=== PATIENT | female | born 1945 | race African-American/Black ===

== ENCOUNTER 2016-09-26 14:45 | Inpatient (IN) | payer OTHER ==
[~2016-09-26] VITALS: Ht 157.5 cm; Wt 86.9 kg
--- NOTE | ~2016-09-26 | H ---
[facility] [place] [address] HISTORY AND PHYSICAL Name: VALERIA LARIOS Room #: 443-P [facility] IN .R.#: [id number] Admission: 09/26/16 Attend Phys: Ugo King MD Discharge: 09/30/16 Date of : 43 Report #: [id number] THIS REPORT FOR: //name// CC: Ugo King DATE OF SERVICE: 09/26/2016 DATE OF ADMISSION: 09/26/2016. CHIEF COMPLAINT: Cough, weakness and fever. HISTORY OF PRESENT ILLNESS: The patient is a 71-year-old -[place] female who resides at [facility]. She had developed cold symptoms with nonproductive cough, fever and fatigue over the past 24 hours due to generalized weakness. She was brought to [facility] Emergency Room for evaluation. In the Emergency Department, chest x-ray was unremarkable; however, she was found to be hypoxic and requiring oxygen at 2 liters per minute via nasal cannula. She was also found to have elevated BUN and creatinine as well as lactic acidosis. She was admitted with working diagnosis of volume depletion with lactic acidosis due to volume depletion. PAST MEDICAL HISTORY: Diabetes mellitus type 2, hyperlipidemia, hypertension, dependent edema, osteoporosis, constipation, depression, lupus erythematosus. History of bulging disk, spinal stenosis and lumbar radiculopathy. ALLERGIES: No known drug allergies. MEDICATIONS: MiraLax 17 grams in 8 ounce water daily, potassium chloride 10 mEq daily, pravastatin 40 mg daily, prednisone 5 mg daily, venlafaxine 75 mg b.i.d., tramadol 50 mg q. 6 hours p.r.n., milk of magnesia 5 mL daily as needed, Lantus 30 units subQ at bedtime, NovoLog 6 units subq 3 times a day before meals, Fosamax 70 grams every Friday, calcium and vitamin D 600/40 one tablet daily, Colace 100 mg 2 capsules twice daily, ferrous sulfate 325 mg twice daily, Lasix 40 mg daily, gabapentin 300 mg twice daily, losartan 100 mg daily, Toprol-XL 25 mg daily. FAMILY HISTORY: Noncontributory. SOCIAL HISTORY: She is single, lives in a [facility] facility, does not use tobacco or alcohol. REVIEW OF SYSTEMS: As per history of present illness. She is able to feed herself, but needs assistance to transfer from bed to chair. She gets about the facility in a wheelchair. She needs assistance with dressing and personal hygiene. [facility] [address] [place] [address] HISTORY AND PHYSICAL Name: HARRIETVALERIA Room #: [facility]#: [id number] Admission: 09/26/16 Attend Phys: Ugo King MD Discharge: 09/30/16 Date of : 43 Report #: [id number] PHYSICAL EXAMINATION: GENERAL: The patient is a pleasant -Austrian female lying in bed, asleep, but arousable in no apparent distress. RECENT VITAL SIGNS: Reveal temperature of 100.7, pulse of 90, respiratory rate 20, blood pressure 140/66. HEENT: Head is normocephalic, atraumatic. Pupils are reactive. Extraocular muscles are intact. Oropharynx is moist. NECK: Supple. Trachea midline. LUNGS: Clear. CARDIOVASCULAR: Regular rate and rhythm. ABDOMEN: Soft, nontender, nondistended. Normoactive bowel sounds. SKIN: Warm and dry. Turgor adequate. LYMPHATICS: No cervical or axillary lymphadenopathy. NEUROLOGIC: She is awake, alert. She is asleep but easily arousable, oriented x 3 without focal neurologic deficit or lateralizing signs. LABORATORY DATA: BUN 26, creatinine 1.5, glucose 211. AST is 57, ALT is 72. Albumin is 3.2. Lactic acid is 2.2. Troponin is unremarkable. WBC is 9.9, hemoglobin is 11.8, hematocrit is 36.3. Urinalysis shows protein trace, blood trace. Arterial blood gas reveals pH of 7.42, pCO2 of 40, pO2 of 58.5 on room air with oxygen saturation of 90%. RADIOGRAPHIC STUDIES: Include chest x-ray, which shows cardiomegaly and mild pulmonary edema and large hiatal hernia. ASSESSMENT: 1. Volume depletion. 2. Hypoxemia, although possibility of a pneumonia given interstitial markings and low grade fever, which suggests possible pneumonia, though she does not have leukocytosis. 3. Lactic acidosis. 4. Diabetes mellitus type 2 with neuropathy. 5. Hypertension, benign. 6. Vitamin D deficiency. 7. Systemic lupus erythematosus. 8. Hyperlipidemia. 9. Osteoporosis. 10. Constipation. PLAN: Admission, continue IV fluids. We will repeat her chest x-ray and CBC in the morning. Monitor for recurrent fever. We will swab for influenza titers, [address] [address] HISTORY AND PHYSICAL Name: VALERIA LARIOS Room #: 443-P [facility] IN M.R.#: [id number] Admission: 09/26/16 Attend Phys: Ugo King MD Discharge: 09/30/16 Date of : 43 Report #: [id number] will continue home medications and need to repeat her arterial blood gas in the morning. Otherwise, continue home medications except for Lasix and potassium. <ELECTRONICALLY SIGNED> By: Ugo King MD 10/26/16 1931 203 0001 Ugo King MD /nt
--- NOTE | ~2016-09-26 | EKG ---
[address] [address] ELECTROCARDIOGRAM REPORT Name: VALERIA LARIOS Room #: [facility]#: [id number] Admission: 09/26/16 Attend Phys: Discharge: Date of : 43 Report #: [id number] THIS REPORT FOR: //name// [facility] ED Test Date: 2016-09-26 Test Time: 15:09:44 Pat Name: VALERIA LARIOS Department: Room: Gender: F Top Collar Baster: MZOOK : 1945 Requested By: Zane Campa Order Number: [id number] MD: Nicanor Ospina Measurements Intervals [place] Rate: 94 P: 27 TX: 159 QRS: -8 QRSD: 82 T: 44 QT: 328 QTc: 411 Interpretive Statements Sinus rhythm No previous ECG available for comparison Electronically Signed On 09-26-2016 15:52:23 QUALITY MANAGEMENT NURSE by Nicanor Ospina [email or web address] <ELECTRONICALLY SIGNED> By: Nicanor Ospina MD 09/26/16 1552 1509 1509 Nicanor Ospina MD /LAURA
[~2016-09-26 14:45] MED LIST: ACETAMINOPHEN-1 EAC1 PO; CALICUM 500+D1 EACH PO; COZAAR 50 MG TA50 M2 PO; DOCUSIL100 MG PO; DUONEB 2.5-0.5 M3 ML INH; FOSAMAX 70 MG T70 MG PO; LANTUS SOL100 UNIT/1 SQ; LASIX 40 MG TAB40 M2 PO; MILK OF MA2400 MG/10 PO; MIRALAX255 GM PO; NEURONTIN 300300 M1 PO; NOVOLOG FL100 UNIT/M SC; PRAVACHOL40 MG PO; PREDNISONE 5 MG5 M1 PO; TRAMADOL 50 MG50 MG PO; VENLAFAXIN75 MG/1 T2 PO
[2016-09-26 14:46] VITALS: BP 108/52
[2016-09-26] MEDS ORDERED: LANTUS100 UNIT/M SUBQ (15:01)
[2016-09-26] MEDS ORDERED: NOVOLOG FL100 UNIT/M SC (15:11)
[2016-09-26] MEDS ORDERED: IRON325 PO (15:13)
[2016-09-26] MEDS ORDERED: TOPROL XL25 MG PO (15:14)
[2016-09-26] MEDS ORDERED: KLOR-CON 1010 MEQ PO (15:15)
[2016-09-26] MEDS ORDERED: MILK OF MA2400 MG/10 PO (15:16)
[2016-09-26] MEDS ORDERED: PREDNISONE 5 MG5 M1 PO (15:16)
[2016-09-26 15:56] LABS: HEMATOCRIT 36.3 % (37.0-47.0); HEMOGLOBIN 11.8 gm/dL (12.0-15.0); MCHC 32.6 % (28.0-37.0); MCV 82.8 fL (80.0-100.0); PLATELET COUNT 218 thou/uL (150-400); RBC 4.38 mil/uL (4.20-5.00); RDW 13.8 % (10.5-14.5); WBC 9.9 thou/uL (4.0-11.0)
[2016-09-26 16:00] LABS: MANUAL DIFF YES
[2016-09-26 16:05] LABS: ANION GAP 7 mmol/L (7-16); BUN 26 mg/dL (7-18); CALCIUM 9.1 mg/dL (8.5-10.1); CHLORIDE 102 mmol/L (98-107); CO2 31 mmol/L (21-32); CREATININE 1.5 mg/dL (0.6-1.3); GLUCOSE 211 mg/dL (70-99); POTASSIUM 4.8 mmol/L (3.5-5.1); SODIUM 140 mmol/L (136-145)
[2016-09-26 16:14] LABS: ALBUMIN 3.2 g/dL (3.4-5.0); ALKALINE PHOSPHATASE 51 U/L (46-116); SGOT 57 U/L (15-37); SGPT 72 U/L (30-65); TOTAL BILIRUBIN 0.2 mg/dL (<0.1-1.0); TOTAL PROTEIN 7.6 g/dL (6.4-8.2); TROPONIN-I < 0.04 ng/mL (<0.04-0.07)
[2016-09-26 16:26] LABS: ABSOLUTE NEUTROPHILS 8.6 thou/uL (1.4-8.2); TOTAL CELL COUNT 100
[2016-09-26 16:27] LABS: ANISOCYTOSIS 1+; POIKILOCYTOSIS SLIGHT; POLYCHROMASIA OCCASIONAL
[2016-09-26 16:38] LABS: URINE BILIRUBIN NEGATIVE (Negative); URINE BLOOD TRACE (Negative); URINE COLOR YELLOW; URINE GLUCOSE-RANDOM* NEGATIVE (Negative); URINE KETONES NEGATIVE (Negative); URINE NITRITE NEGATIVE (Negative); URINE PROTEIN (DIPSTICK) TRACE (Negative); URINE SPECIFIC GRAVITY 1.015 (1.003-1.035); URINE UROBILINOGEN 0.2 E.U./dl (0.2-1.0)
[2016-09-26 17:10] LABS: ABG SAMPLE TYPE ARTERIAL; BE(vivo) 1.2 mmol/L (-2 to +3); HCO3 25.7 mmol/L (22.0-26.0); LACTATE 1.58 mmol/L (0.5-2.0); O2(CT) 15.7 mL/dL (15.0-23.0); O2Hb 90.2 % (92.0-98.0); PCO2 40.1 mmHg (35.0-45.0); PO2 58.5 mmHg (80.0-100.0); STICK SITE L.RADIAL; pH 7.424 (7.360-7.450); tCO2 26.9 mmol/L (24.0-30.0)
[2016-09-26 18:15] VITALS: BP 108/62
[2016-09-26 18:37] VITALS: BP 140/66
[2016-09-26 20:16] VITALS: BP 139/72
[2016-09-26 21:54] LABS: HEMATOCRIT 38.6 % (37.0-47.0); HEMOGLOBIN 12.5 gm/dL (12.0-15.0); MCHC 32.3 % (28.0-37.0); MCV 83.4 fL (80.0-100.0); RBC 4.63 mil/uL (4.20-5.00); RDW 13.7 % (10.5-14.5); WBC 8.7 thou/uL (4.0-11.0)
[2016-09-27 00:38] VITALS: BP 111/52
[2016-09-27 04:01] VITALS: BP 115/61
[2016-09-27 04:39] LABS: HEMATOCRIT 34.5 % (37.0-47.0); MCH 26.8 pg (26.0-34.0); MCHC 31.8 % (28.0-37.0); MCV 84.1 fL (80.0-100.0); RBC 4.1 mil/uL (4.20-5.00); RDW 13.7 % (10.5-14.5); WBC 5.7 thou/uL (4.0-11.0)
[2016-09-27 04:49] LABS: CALCIUM 8.6 mg/dL (8.5-10.1); CREATININE 1.1 mg/dL (0.6-1.3); POTASSIUM 4.1 mmol/L (3.5-5.1)
[2016-09-27 08:32] VITALS: BP 111/55
[2016-09-27 11:56] LABS: ABG SAMPLE TYPE ARTERIAL; BE(vivo) -0.3 mmol/L (-2 to +3); HCO3 24.5 mmol/L (22.0-26.0); LACTATE 0.98 mmol/L (0.5-2.0); O2(CT) 14.2 mL/dL (15.0-23.0); PCO2 40.7 mmHg (35.0-45.0); pH 7.397 (7.360-7.450); sO2 87.8 % (92.0-98.0); tCO2 25.7 mmol/L (24.0-30.0)
[2016-09-27 11:57] LABS: PO2 53.6 mmHg (80.0-100.0)
[2016-09-27 12:32] VITALS: BP 112/58
[2016-09-27 16:55] VITALS: BP 120/65
[2016-09-27 20:32] VITALS: BP 120/58
[2016-09-28 04:46] VITALS: BP 100/49
[2016-09-28 08:00] VITALS: BP 124/61
[2016-09-28 12:00] VITALS: BP 131/78
[2016-09-28 16:00] VITALS: BP 138/62
[2016-09-28 19:46] VITALS: BP 122/49
[2016-09-29 04:12] VITALS: BP 130/70
[2016-09-29 08:00] VITALS: BP 134/61
[2016-09-29 11:42] LABS: HEMATOCRIT 34.3 % (37.0-47.0); MCH 26.9 pg (26.0-34.0); MCHC 32.1 % (28.0-37.0); MCV 83.9 fL (80.0-100.0); RBC 4.08 mil/uL (4.20-5.00); RDW 13.7 % (10.5-14.5); WBC 7.3 thou/uL (4.0-11.0)
[2016-09-29 11:58] LABS: ALBUMIN 2.6 g/dL (3.4-5.0); CALCIUM 8.6 mg/dL (8.5-10.1); POTASSIUM 4.5 mmol/L (3.5-5.1); TOTAL BILIRUBIN 0.3 mg/dL (<0.1-1.0); TOTAL PROTEIN 6.7 g/dL (6.4-8.2)
[2016-09-29 12:00] VITALS: BP 154/72
[2016-09-29 16:00] VITALS: BP 122/60
[2016-09-29 20:30] VITALS: BP 141/55
[2016-09-30 05:00] VITALS: BP 125/53
[2016-09-30 08:54] VITALS: BP 141/71
[2016-09-30] MEDS ORDERED: CEFTRIAXON1 GM/50 ML IVPB (09:57)
[2016-09-30] MEDS ORDERED: TAMIFLU30 MG PO (09:58)
[2016-09-30 12:36] VITALS: BP 131/66
== END 2016-09-30 16:49 | DRG 871 ==
LOC: ER 14:45 → 4S 16:39 → EROBS 16:39 → 4S 18:03
PROVIDERS: Internal Medicine; Physician Assistant
PROC: 05H533Z Insertion of Infusion Device into Right Subclavian Vein, Percutaneous Approach (ICD-10-PCS; principal; 2016-09-30)
PROC: B546ZZA Ultrasonography of Right Subclavian Vein, Guidance (ICD-10-PCS; 2016-09-30)
DX: A41.9 Sepsis, unspecified organism (principal); J18.9 Pneumonia, unspecified organism; N17.9 Acute kidney failure, unspecified; E87.2 Acidosis; M19.90 Unspecified osteoarthritis, unspecified site; F32.9 Major depressive disorder, single episode, unspecified; F41.9 Anxiety disorder, unspecified; R09.02 Hypoxemia; E78.5 Hyperlipidemia, unspecified; K59.00 Constipation, unspecified; E11.40 Type 2 diabetes mellitus with diabetic neuropathy, unspecified; I10 Essential (primary) hypertension; K21.9 Gastro-esophageal reflux disease without esophagitis; E55.9 Vitamin D deficiency, unspecified; E86.9 Volume depletion, unspecified; M81.0 Age-related osteoporosis without current pathological fracture; M48.00 Spinal stenosis, site unspecified; M32.9 Systemic lupus erythematosus, unspecified; M54.16 Radiculopathy, lumbar region; Z90.710 Acquired absence of both cervix and uterus; Z90.49 Acquired absence of other specified parts of digestive tract; Z98.49 Cataract extraction status, unspecified eye; Z98.890 Other specified postprocedural states; Z79.899 Other long term (current) drug therapy; Z79.2 Long term (current) use of antibiotics; Z79.52 Long term (current) use of systemic steroids; J09.X2 Influenza due to identified novel influenza A virus with other respiratory manifestations
CPT/HCPCS: 10100; 27001

== ENCOUNTER → 2017-01-21 | Outpatient (CLI) | payer OTHER ==
[~2017-01-21] MED LIST changes: +CEFTRIAXON1 GM/50 ML IVPB; +IRON325 PO; +KLOR-CON 1010 MEQ PO; +LANTUS100 UNIT/M SUBQ; +TAMIFLU30 MG PO; +TOPROL XL25 MG PO
== END ==
LOC: HYPER 07:10
DX: E11.621 Type 2 diabetes mellitus with foot ulcer (principal); L89.892 Pressure ulcer of other site, stage 2; E11.40 Type 2 diabetes mellitus with diabetic neuropathy, unspecified; E66.09 Other obesity due to excess calories; E11.42 Type 2 diabetes mellitus with diabetic polyneuropathy; F32.89 Other specified depressive episodes; M51.9 Unspecified thoracic, thoracolumbar and lumbosacral intervertebral disc disorder; H26.8 Other specified cataract; K21.9 Gastro-esophageal reflux disease without esophagitis; M15.0 Primary generalized (osteo)arthritis; F41.1 Generalized anxiety disorder; E78.5 Hyperlipidemia, unspecified; I11.0 Hypertensive heart disease with heart failure; I50.9 Heart failure, unspecified; D50.9 Iron deficiency anemia, unspecified; M48.00 Spinal stenosis, site unspecified; M32.9 Systemic lupus erythematosus, unspecified; Z86.718 Personal history of other venous thrombosis and embolism; M81.0 Age-related osteoporosis without current pathological fracture; Z72.89 Other problems related to lifestyle

== ENCOUNTER → 2017-04-09 | Outpatient (CLI) | payer OTHER | LOC: HYPER 07:09 | DX: L89.892 Pressure ulcer of other site, stage 2 (principal); E11.621 Type 2 diabetes mellitus with foot ulcer; L97.521 Non-pressure chronic ulcer of other part of left foot limited to breakdown of skin; I70.245 Atherosclerosis of native arteries of left leg with ulceration of other part of foot; E66.09 Other obesity due to excess calories; E11.42 Type 2 diabetes mellitus with diabetic polyneuropathy; I11.0 Hypertensive heart disease with heart failure; I50.9 Heart failure, unspecified; E11.36 Type 2 diabetes mellitus with diabetic cataract; K21.9 Gastro-esophageal reflux disease without esophagitis; M15.0 Primary generalized (osteo)arthritis; E78.5 Hyperlipidemia, unspecified; D50.9 Iron deficiency anemia, unspecified; M32.9 Systemic lupus erythematosus, unspecified; M48.00 Spinal stenosis, site unspecified; S90.822A Blister (nonthermal), left foot, initial encounter; E11.39 Type 2 diabetes mellitus with other diabetic ophthalmic complication; H40.9 Unspecified glaucoma; M81.0 Age-related osteoporosis without current pathological fracture; F32.89 Other specified depressive episodes; F41.1 Generalized anxiety disorder; Z79.01 Long term (current) use of anticoagulants; Z72.89 Other problems related to lifestyle; Z79.4 Long term (current) use of insulin; Z68.32 Body mass index [BMI] 32.0-32.9, adult; Z86.718 Personal history of other venous thrombosis and embolism; X58.XXXA Exposure to other specified factors, initial encounter; Y93.89 Activity, other specified; Y92.89 Other specified places as the place of occurrence of the external cause; Y99.8 Other external cause status ==

== ENCOUNTER → 2017-04-16 | Outpatient (CLI) | payer OTHER | LOC: ULTRA 11:25 | DX: E11.621 Type 2 diabetes mellitus with foot ulcer (principal); E11.40 Type 2 diabetes mellitus with diabetic neuropathy, unspecified; L97.529 Non-pressure chronic ulcer of other part of left foot with unspecified severity ==

== ENCOUNTER → 2017-04-30 | Outpatient (CLI) | payer OTHER | LOC: HYPER 07:03 | DX: E11.621 Type 2 diabetes mellitus with foot ulcer (principal); L97.511 Non-pressure chronic ulcer of other part of right foot limited to breakdown of skin; L89.893 Pressure ulcer of other site, stage 3; L97.521 Non-pressure chronic ulcer of other part of left foot limited to breakdown of skin; I70.245 Atherosclerosis of native arteries of left leg with ulceration of other part of foot; L89.892 Pressure ulcer of other site, stage 2; E11.40 Type 2 diabetes mellitus with diabetic neuropathy, unspecified; E66.09 Other obesity due to excess calories; Z68.32 Body mass index [BMI] 32.0-32.9, adult; Z79.4 Long term (current) use of insulin; E11.42 Type 2 diabetes mellitus with diabetic polyneuropathy; I50.9 Heart failure, unspecified; F32.89 Other specified depressive episodes; M51.9 Unspecified thoracic, thoracolumbar and lumbosacral intervertebral disc disorder; E11.36 Type 2 diabetes mellitus with diabetic cataract; K21.9 Gastro-esophageal reflux disease without esophagitis; M15.0 Primary generalized (osteo)arthritis; F41.1 Generalized anxiety disorder; E78.5 Hyperlipidemia, unspecified; I10 Essential (primary) hypertension; D50.9 Iron deficiency anemia, unspecified; M48.00 Spinal stenosis, site unspecified; M32.9 Systemic lupus erythematosus, unspecified; Z86.718 Personal history of other venous thrombosis and embolism; M19.90 Unspecified osteoarthritis, unspecified site; M81.0 Age-related osteoporosis without current pathological fracture; Z72.89 Other problems related to lifestyle ==

== ENCOUNTER → 2017-05-21 | Outpatient (CLI) | payer OTHER | LOC: HYPER 07:02 | DX: L89.892 Pressure ulcer of other site, stage 2 (principal); S90.822D Blister (nonthermal), left foot, subsequent encounter; E66.09 Other obesity due to excess calories; E11.42 Type 2 diabetes mellitus with diabetic polyneuropathy; M15.0 Primary generalized (osteo)arthritis; I10 Essential (primary) hypertension; M32.9 Systemic lupus erythematosus, unspecified; E11.36 Type 2 diabetes mellitus with diabetic cataract; E11.39 Type 2 diabetes mellitus with other diabetic ophthalmic complication; H40.9 Unspecified glaucoma; M81.0 Age-related osteoporosis without current pathological fracture; F32.9 Major depressive disorder, single episode, unspecified; Z79.4 Long term (current) use of insulin; Z86.718 Personal history of other venous thrombosis and embolism; Z79.01 Long term (current) use of anticoagulants; Z72.89 Other problems related to lifestyle; X58.XXXD Exposure to other specified factors, subsequent encounter ==

== ENCOUNTER 2017-06-04 10:51 | Inpatient (IN) | payer OTHER ==
--- NOTE | ~2017-06-04 | HC ---
[facility] [place] [address] [address] CONSULTATION Name: VALERIA LARIOS Room #: 402-P ADM IN .R.#: [id number] Admission: 06/04/17 Attend Phys: Ugo King MD Discharge: Date of : 43 Report #: [id number] THIS REPORT FOR: //name// CC: Ugo King DATE OF SERVICE: 06/05/2017 CHIEF COMPLAINT: Osteomyelitis, left great toe. HISTORY OF PRESENT ILLNESS: This is a 72-year-old female patient who was at a nursing care facility, has been followed by my partner, Dr. Barry. She was found to have osteomyelitis and despite appropriate debridement and antibiotic therapy, has had persistence of the ulceration and the osteomyelitis. She has been admitted for amputation of the toe. PAST MEDICAL HISTORY: Positive for type 2 diabetes mellitus, lupus, chronic dependent edema, DVT, depression, hyperlipidemia, hypertension, constipation. MEDICATIONS: Include DuoNeb, atorvastatin, Colace, Effexor, Lovenox, ferrous sulfate, Lasix, Aldactone, gabapentin, Levemir, Topral XL, losartan, MiraLax, and prednisone. FAMILY HISTORY: Noncontributory. SOCIAL HISTORY: Lives in a nursing care facility. No history of alcohol or tobacco use. REVIEW OF SYSTEMS: CONSTITUTIONAL: No fever, chills, weight loss. NEUROLOGICAL: The patient has focal weakness. ENT: The patient denies earache, nasal drainage, or sore throat. CARDIOVASCULAR: The patient denies chest pain, palpitations, or diaphoresis. PULMONARY: The patient denies cough or shortness of breath. GASTROINTESTINAL: The patient denies nausea, vomiting, or diarrhea. ORTHOPEDIC: The patient does note ulcerations to both big toes. Other systems in a 12-point review of systems are negative. PHYSICAL EXAMINATION: VITAL SIGNS: At this time include pulse 109, respiratory rate 18, blood pressure 112/45, temperature 98.1. GENERAL: This is a chronically ill-appearing female patient, appears to be in no distress. HEENT: Head normocephalic. Nose and throat are clear. LUNGS: Clear. ABDOMEN: Soft. Bowel sounds present. HEART: Regular, without murmur. [facility] [address] [place] [address] CONSULTATION Name: VALERIA LARIOS Room #: 402-P [facility] IN [facility].#: [id number] Admission: 06/04/17 Attend Phys: Ugo King MD Discharge: Date of : 43 Report #: [id number] EXTREMITIES: Lower extremities demonstrate palpable distal pulses. She has ulceration to the dorsal aspect of the right great toe with a mix of granulation and fibrin. There is ulceration to the tip of the left great toe. She has small stage 2 pressure ulceration to her coccyx and a small blister to the left side of her abdominal wall, possibly related to an injection site. CLINICAL IMPRESSION: 1. Ulceration of the left great toe with underlying osteomyelitis. 2. Stage II sacral pressure ulceration. 3. Small blister, left abdominal wall. 4. Ulceration to the right great toe without radiographic evidence of osteomyelitis. RECOMMENDATIONS: The patient will have consultation with Orthopedics for possible amputation of the left great toe. We will use a moisture barrier cream to the sacral region every 2 hour, turning and repositioning, bordered foam to the left abdominal wall blister, and a nonadherent dressing to the right great toe. All questions have been answered. <ELECTRONICALLY SIGNED> By: Bowen Lopez MD 06/06/17 1002 1809 0042 Bowen Lopez MD /nt
--- NOTE | ~2017-06-04 | HC ---
[facility] [place] [address] CONSULTATION Name: VALERIA LARIOS Room #: 402-P ADM IN .R.#: [id number] Admission: 06/04/17 Attend Phys: Ugo King MD Discharge: Date of : 43 Report #: [id number] THIS REPORT FOR: //name// CC: Ugo King DATE OF SERVICE: 06/06/2017 DATE OF SERVICE: 06/06/2017 CHIEF COMPLAINT: Peripheral vascular disease and diabetes with ischemic changes in both feet and soft tissue wounds of both great toes with associated osteomyelitis. HISTORY OF PRESENT ILLNESS: This obese 72-year-old female with multiple medical problems is a resident of an [facility] care facility. She has poorly controlled diabetes, lupus, hypertension and peripheral vascular disease. She also has a history of chronic deep venous thrombosis and chronic peripheral edema as well as hyperlipidemia. She has a moderate foot drop and moderate generalized weakness of both lower extremities and apparently has been nonambulatory for some time. She has developed deformities of both great toes and has mild ischemic changes and open wounds over the dorsal aspect of the IP joint of both toes. I believe she has had antibiotic management for quite some time, but without resolution. She has imaging evidence of osteomyelitis involving the left great toe. At the time of my evaluation, she is accompanied by her family. She seems to understand the situation well. She notes she has moderate discomfort in both feet. She has altered sensation. She has some ability for both dorsiflexion and plantar flexion, but rather significant weakness in both legs. Both feet demonstrate some generalized soft tissue and skin atrophy. There are erosive changes over the dorsal aspect of both the left and right great toe. There is no taylor necrosis, but there is obvious impaired vascular supply and some serous drainage of both toes suggesting ongoing infection. The lesser toes are less severely involved, although the skin quality is poor. Pulses are quite diminished in both feet. I have had a lengthy discussion with the patient and her accompanying family. They seem to understand the situation well and feel that her chronic nonsurgical management has not been effective in controlling the situation. They are concerned with increasing pain and evidence of infection, probably involving osteomyelitis at least on the left side. Therefore, they wish to go ahead with toe amputation, which was the primary purpose of this hospital admission. I have explained that the osteomyelitis findings are primarily on the left side; however, the objective clinical findings are similar on the right. I have explained that this toe may do adequately with continued conservative management, but she feels that the toe wound and appearance have gotten somewhat [address] [address] CONSULTATION Name: HARRIETREJIVALERIA Tiny Room #: 402-P ADM IN M.R.#: [id number] Admission: 06/04/17 Attend Phys: Ugo King MD Discharge: Date of : 43 Report #: [id number] worse with time. Given this, she wants to go ahead with amputation on the right side as well as on the left. I think that is reasonable given her overall clinical picture. We have therefore elected to go ahead with bilateral great toe amputations. Plan to proceed today on 06/06/2017. <ELECTRONICALLY SIGNED> By: Avery Saeed MD 06/06/17 0912 0735 0851 Avery Saeed MD /nt
--- NOTE | ~2017-06-04 | H ---
[facility] [place] [address] HISTORY AND PHYSICAL Name: VALERIA LARIOS Room #: 402-P [facility] IN .R.#: [id number] Admission: 06/04/17 Attend Phys: Ugo King MD Discharge: 06/10/17 Date of : 43 Report #: [id number] THIS REPORT FOR: //name// CC: Ugo King DATE OF SERVICE: 06/04/2017 CHIEF COMPLAINT: Osteomyelitis of left great toe. HISTORY OF PRESENT ILLNESS: The patient is a 72-year-old -[place] female who resides at [facility]. She has a poorly-healing wound on her left great toe that has been ongoing for over a year. She has longstanding diabetes, though recent arterial Doppler does not reveal any evidence of atherosclerotic limiting blood flow. She has been seen in the Wound Clinic by Dr. Neal Barry. She was found to have osteomyelitis of the left great toe roughly 4 months ago. She has received multiple antibiotics including rounds of doxycycline for MRSA as recent as 3 months ago. Recent wound culture grew out Proteus and Enterococcus, both sensitive to penicillin. She was started on Augmentin. She also has known underlying deep vein thrombosis of the left tibial vein and was managed on Xarelto. Xarelto was discontinued as on 05/29/2017 and she has been receiving Lovenox since then. Due to poor healing nature of the left great toe and underlying osteomyelitis, having failed multiple antibiotic therapies, with continued duration, she has been made a direct admit to [facility] for a left great toe amputation as discussed with Dr. Neal Barry. PAST MEDICAL HISTORY: Diabetes mellitus type 2, lupus, chronic dependent edema, deep vein thrombosis of the left posterior tibial vein, depression, hyperlipidemia, hypertension, osteoporosis, and constipation. MEDICATIONS: DuoNeb nebulized treatments q.i.d., atorvastatin 40 mg at bedtime, Colace 200 mg daily, Effexor 75 mg b.i.d., Lovenox 80 mg subcutaneous at bedtime, ferrous sulfate 325 mg b.i.d., Lasix 40 mg daily, Aldactone 25 mg daily, gabapentin 300 mg t.i.d., Levemir 30 units subcutaneous at bedtime, losartan 100 mg daily, Toprol-XL 25 mg daily, oxycodone 5 mg t.i.d., MiraLax 17 grams in 8 ounce water daily, prednisone 5 mg daily, vitamin D3 2000 units daily. FAMILY HISTORY: Noncontributory. SOCIAL HISTORY: The patient resides at [facility]. She does not use tobacco or alcohol. REVIEW OF SYSTEMS: GENERAL: The patient denies any significant pain. HEENT: Negative. [facility] [address] [place] [address] HISTORY AND PHYSICAL Name: VALERIA LARIOS Room #: 402-P [facility] IN M.R.#: [id number] Admission: 06/04/17 Attend Phys: Ugo King MD Discharge: 06/10/17 Date of : 43 Report #: [id number] PULMONARY: No cough or shortness of breath. CARDIOVASCULAR: No chest pains or palpitations with mild chronic edema. GASTROINTESTINAL: No nausea, vomiting, constipation, or diarrhea. MUSCULOSKELETAL: Wheelchair bound and ongoing osteomyelitis of left toe with poor healing in both left and right great toe. MUSCULAR: She is also wheelchair bound. PHYSICAL EXAMINATION: GENERAL: The patient is pleasant and cooperative -[place] female sitting up in hospital bed, in no apparent distress. VITAL SIGNS: Reveal temperature of 36.8, pulse of 92, respiratory rate 18, blood pressure 122/46. HEENT: Head is normocephalic, atraumatic. Pupils are equal and reactive. Extraocular muscles are intact. Oropharynx is moist. NECK: Supple. Trachea midline. LUNGS: Clear to auscultation bilaterally. CARDIOVASCULAR: Regular rate and rhythm. ABDOMEN: Soft, nontender, nondistended with normoactive bowel sounds. SKIN: Warm and dry. Turgor adequate. Dressing over both left and right great toes. LYMPHATICS: No cervical or axillary lymphadenopathy. NEUROLOGIC: She is awake, alert, oriented x 3. Cranial nerves 2-12 within normal limits without focal neurologic deficit or lateralizing signs. LABORATORY DATA: Pertinents in the CBC includes hemoglobin 11.4, hematocrit 36.1. ESR is 101. Pertinents in the BMP include BUN 32, creatinine 1.4, GFR of 45, glucose of 228, calcium 9.9. Wound cultures in the shelter facility performed on 05/27 grew out Proteus mirabilis and Enterococcus faecalis. ASSESSMENT: 1. Chronic osteomyelitis of left great toe with growth of Proteus mirabilis and Enterococcus faecalis. 2. Diabetes mellitus type 2 with neuropathy. 3. Hypertension, benign. 4. Vitamin D deficiency. 5. Systemic lupus erythematosus. 6. Hyperlipidemia. 7. Deep vein thrombosis of left tibial vein. 8. Chronic dependent edema. 9. Bilateral foot drop. 10. Osteoporosis. 11. Constipation. PLAN: Admission. We will start peripheral IV and give IV Zosyn based on most [facility] [place] [place] [address] HISTORY AND PHYSICAL Name: VALERIA LARIOS Room #: 402-P [facility] IN .#: [id number] Admission: 06/04/17 Attend Phys: Ugo King MD Discharge: 06/10/17 Date of : 43 Report #: [id number] recent year wound culture. We will consult Wound Care and orthopedic surgeon. We will continue home medications. We will obtain wound cultures of both left and right great toe. We will also get an x-ray of the left and right great toe. We will forego venous Doppler as this has been done at care home. Hopefully, she will go to surgery within the next 24-48 hours to undergo amputation of left great toe due to chronic underlying osteomyelitis. In addition, we will continue all home medications. <ELECTRONICALLY SIGNED> By: Ugo King MD 06/26/17 1923 [id number] 2255 Ugo King MD /nt
--- NOTE | ~2017-06-04 | S ---
[facility] [place] [address] SURGICAL PATH RPT PROCEDURE Name: VALERIA LARIOS Room #: 402-P ADM IN M.R.#: [id number] Admission: 06/04/17 Date of : 43 Discharge: Report #: [id number] Path Case #: [id number] PATHOLOGY REPORT COLLECTION DATE: 06/06/2017 RECEIVED DATE: 06/06/2017 SUBMITTING PHYS: Dr. Avery Saeed OTHER PHYS: Dr. Ugo King SPECIMEN(S) RECEIVED: A.Right great toe B.Left great toe * * * * * * * * * * * * FINAL DIAGNOSIS: A. Toe, "right great toe," amputation: - Extensive ulceration with gangrenous type necrosis extending deeply into the underlying bone. - The resection margin appears viable. B. Toe, "left great toe," amputation: - Ulceration with gangrenous type necrosis extending deeply into the underlying soft tissue and bone. - The resection margin appears viable. (SHA:mgr; 06/10/2017) PATHOLOGIST: Maverick Conklin M.D. REPORT ELECTRONICALLY SIGNED BY: Maverick Conklin M.D. DATE/TIME: 06/10/2017 14:47 * * * * * * * * * * * * GROSS PATHOLOGY: A. The specimen is received in formalin labeled "Valeria Larios, right great toe". Received is an amputated digit measuring 6.3 x 3.3 x 3.0 cm in greatest mentions. The bone margin is smooth and concave in appearance, consistent with disarticulation. The bone and soft tissue margins are inked black. The nail is present displaying a light fraser and slightly thickened appearance. Proximal to the nail there is a well-circumscribed, irregular in contour, focally ulcerated two necrotic and lipscomb-brown lesion measuring 2.0 x 1.4 cm, which is 0.9 cm from the closest inked margin. The remainder the skin is pale fraser to lipscomb-fraser slightly sloughing in appearance. A full-thickness longitudinal cross-section is submitted in cassettes A1 through A4, from proximal to distal aspects, following decalcification. Also received within the specimen container is an additional segment of bone displaying one blunt margin, consistent with transection, and [address] [address] SURGICAL PATH RPT PROCEDURE Name: VALERIA LARIOS Tiny Room #: 402-P ADM IN .R.#: [id number] Admission: 06/04/17 Date of : 43 Discharge: Report #: [id number] Path Case #: [id number] one convex cartilaginous covered margin, consistent with disarticulation, measuring 2.3 x 1.7 x 1.5 cm in greatest dimensions. The transected margin is inked black. A full-thickness cross-section is submitted in cassette A5, following decalcification. B. The specimen is received in formalin labeled "Valeria Larios, left great toe". Received is an amputated digit measuring 6.4 x 3.1 x 3.0 cm in greatest dimensions. The bone margin is smooth and concave in appearance, consistent with disarticulation. The bone and soft tissue margins are inked black. The nail is present displaying a light fraser and thickened appearance. At the distal aspect of the specimen, there is a poorly circumscribed, irregular in contour, focally ulcerated and light fraser to lipscomb-brown lesion measuring 2.3 x 1.8 cm, which is 3.7 cm from the closest skin margin. The remainder of the skin is pale fraser to lipscomb-fraser and slightly sloughing in appearance. A full-thickness longitudinal cross-section is submitted in cassettes B1 through B4, from proximal to distal aspects, following decalcification. Also received within the specimen tender is an additional segment of bone displaying one block margin, consistent with transection, and one convex cartilaginous covered margin, consistent with disarticulation, measuring 2.3 x 1.8 x 1.4 cm in greatest dimensions. The transected margin is inked black. A full-thickness cross-section is submitted in cassette B5, following decalcification. (CAA; 06/09/2017) CLINICAL HISTORY: Ischemic bilateral great toes INITIAL CPT CODE(S): A; 34258, 29824 B; 41973, 04147 Professional services performed by [facility] at [facility] [address], [place] [address] Technical services performed by [employer] at [address] [place] [address], [address], [place] [address]. [facility] [address] [place] [address] PHONE: [phone] DIRECTOR: Ancelmo Becerra M.D. * * * END OF REPORT * * *
--- NOTE | ~2017-06-04 | O ---
[facility] [place] [address] OPERATIVE REPORT Name: VALERIA LARIOS Room #: 402-P ADM IN M.R.#: [id number] Admission: 06/04/17 Attend Phys: Ugo King MD Discharge: Date of : 43 Report #: [id number] THIS REPORT FOR: //name// CC: Ugo King DATE OF SERVICE: 06/06/2017 PREOPERATIVE DIAGNOSIS: Ischemic bilateral great toe. POSTOPERATIVE DIAGNOSIS: Ischemic bilateral great toe. PROCEDURE: Bilateral great toe amputation. SURGEON: Avery Saeed MD INDICATIONS: This frail, heavy, poorly controlled diabetic has ischemic problems on both feet with infections involving both great toes. We have elected to go ahead with amputation. DESCRIPTION OF PROCEDURE: The patient was taken to the operating room where she was placed under general anesthesia. She has continued on her preoperative antibiotic regimen. Both feet were meticulously prepped and draped. An Esmarch bandage was used around the ankle for a gentle tourniquet on both sides. A racquet-shaped skin incision was made around the base of the digit on both toes. This was extended initially through the MP joint level. The soft tissues seemed to be a bit tight and so I resected the metatarsal head going back to about the metatarsal neck level. The same procedure was performed on both sides. The Esmarch bandage was removed from both sides and both feet were copiously irrigated. There did seem to be satisfactory blood flow with punctate bleeding in the subcutaneous tissues and along the skin edges. Gentle pressure was applied on both sides until a good hemostasis was confirmed. Both wounds were then closed using a 2-0 nylon in a looping mattress fashion to bring the deeper tissues together and then 4-0 Prolene in the skin. Both wounds came together nicely and vascular supply along the edges seems to be satisfactory. A sterile dressing was applied to both feet. The patient was then awakened and returned to recovery room in good condition. <ELECTRONICALLY SIGNED> By: Avery Saeed MD 06/09/17 0726 0910 0925 Avery Saeed MD /nt
[2017-06-04 12:45] VITALS: BP 126/52; BP 126/53
[2017-06-04 13:45] VITALS: BP 126/52
[2017-06-04 14:15] VITALS: BP 153/84
[2017-06-04 16:00] VITALS: BP 128/46
[2017-06-04 16:08] LABS: ABSOLUTE NEUTROPHILS 7.9 thou/uL (1.4-8.2); BASOPHILS 0.8 % (0.0-2.0); EOSINOPHILS 2.2 % (0.0-3.0); HEMATOCRIT 36.1 % (37.0-47.0); HEMOGLOBIN 11.4 gm/dL (12.0-15.0); LYMPHOCYTES 13.7 % (24.0-44.0); MCH 26.4 pg (26.0-34.0); MCHC 31.7 g/dL (28.0-37.0); MCV 83.4 fL (80.0-100.0); MONOCYTES 7.1 % (1.0-8.0); PLATELET COUNT 331 thou/uL (150-400); POLYS 76.2 % (36.0-66.0); RBC 4.33 mil/uL (4.20-5.00); RDW 14.6 % (10.5-14.5); WBC 10.4 thou/uL (4.0-11.0)
[2017-06-04 16:14] LABS: CALCIUM 9.9 mg/dL (8.5-10.1); CREATININE 1.4 mg/dL (0.6-1.0); MANUAL DIFF NO; POTASSIUM 4.8 mmol/L (3.5-5.1)
[2017-06-04 20:20] VITALS: BP 113/38
[2017-06-05 00:03] VITALS: BP 108/43
[2017-06-05 03:40] VITALS: BP 132/51
[2017-06-05 08:36] VITALS: BP 109/43
[2017-06-05 16:12] VITALS: BP 112/45
[2017-06-05 18:46] VITALS: BP 120/55
[2017-06-06 03:46] VITALS: BP 96/38
[2017-06-06 07:11] VITALS: BP 117/57
[2017-06-06 16:00] VITALS: BP 96/46
[2017-06-06 19:15] VITALS: BP 107/44
[2017-06-07] VITALS: BP 94/41
[2017-06-07 04:05] VITALS: BP 97/35
[2017-06-07 07:56] VITALS: BP 92/41
[2017-06-07 16:17] VITALS: BP 93/38
[2017-06-07 20:00] VITALS: BP 93/37
[2017-06-08 04:00] VITALS: BP 90/34
[2017-06-08 07:19] VITALS: BP 102/36
[2017-06-08 16:33] VITALS: BP 106/52
[2017-06-08 19:40] VITALS: BP 100/41
[2017-06-09 02:54] VITALS: BP 117/43
[2017-06-09 05:04] LABS: HEMOGLOBIN 9.7 gm/dL (12.0-15.0); MCH 26.1 pg (26.0-34.0); MCHC 31.3 g/dL (28.0-37.0); MCV 83.4 fL (80.0-100.0); RBC 3.71 mil/uL (4.20-5.00); RDW 14.9 % (10.5-14.5)
[2017-06-09 05:13] LABS: CALCIUM 8.1 mg/dL (8.5-10.1); CREATININE 1.2 mg/dL (0.6-1.0); POTASSIUM 3.6 mmol/L (3.5-5.1)
[2017-06-09 08:04] VITALS: BP 116/51
[2017-06-09 15:47] VITALS: BP 116/53
[2017-06-09 19:01] VITALS: BP 116/49
[2017-06-10 07:38] VITALS: BP 115/41
[2017-06-10] MEDS ORDERED: VANCO 750750 MG/250 IV (09:04)
[2017-06-10] MEDS ORDERED: XARELTO20 MG PO (09:06)
[2017-06-10] MEDS ORDERED: OXYCODONE HCL 55 MG PO (09:08)
[2017-06-10] MEDS ORDERED: NEURONTIN 300300 M1 PO (09:08)
== END 2017-06-10 17:09 | DRG 616 ==
LOC: 4N 10:51 → TBA 15:43 → 4N 06-10 17:09
PROVIDERS: Internal Medicine
PROC: 0Y6Q0Z0 Detachment at Left 1st Toe, Complete, Open Approach (ICD-10-PCS; principal; 2017-06-04)
PROC: 0Y6P0Z0 Detachment at Right 1st Toe, Complete, Open Approach (ICD-10-PCS; 2017-06-04)
PROC: 02HV33Z Insertion of Infusion Device into Superior Vena Cava, Percutaneous Approach (ICD-10-PCS; 2017-06-09)
DX: E11.69 Type 2 diabetes mellitus with other specified complication (principal); E43 Unspecified severe protein-calorie malnutrition; M86.672 Other chronic osteomyelitis, left ankle and foot; M86.671 Other chronic osteomyelitis, right ankle and foot; I96 Gangrene, not elsewhere classified; N17.9 Acute kidney failure, unspecified; L89.152 Pressure ulcer of sacral region, stage 2; F32.9 Major depressive disorder, single episode, unspecified; E78.5 Hyperlipidemia, unspecified; I10 Essential (primary) hypertension; M81.0 Age-related osteoporosis without current pathological fracture; B96.4 Proteus (mirabilis) (morganii) as the cause of diseases classified elsewhere; B95.2 Enterococcus as the cause of diseases classified elsewhere; E11.40 Type 2 diabetes mellitus with diabetic neuropathy, unspecified; E55.9 Vitamin D deficiency, unspecified; M32.9 Systemic lupus erythematosus, unspecified; K59.00 Constipation, unspecified; E11.65 Type 2 diabetes mellitus with hyperglycemia; B95.62 Methicillin resistant Staphylococcus aureus infection as the cause of diseases classified elsewhere; Z88.0 Allergy status to penicillin; Z86.718 Personal history of other venous thrombosis and embolism
CPT/HCPCS: 10790; 27000; 50010; 50101; 50386; 50951; 56524; 56525; 56526; 57091; 62110; 62900; 70005

== ENCOUNTER 2017-06-24 22:29 | Inpatient (IN) | payer OTHER ==
[~2017-06-24] VITALS: Ht 157.5 cm; Wt 104.8 kg
--- NOTE | ~2017-06-24 | H ---
[facility] [place] [address] HISTORY AND PHYSICAL Name: VALERIA LARIOS Room #: 356-P ADM IN M.R.#: [id number] Admission: 06/25/17 Attend Phys: Ugo King MD Discharge: Date of : 44 Report #: [id number] THIS REPORT FOR: //name// CC: Ugo King DATE OF SERVICE: 06/25/2017 CHIEF COMPLAINT: Lethargy and hypoxemia. HISTORY OF PRESENT ILLNESS: The patient is a 72-year-old -[place] female who resides at [facility]. She recently underwent bilateral great toe amputation for gangrene and osteomyelitis. 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 She was doing relatively well until several days prior to admission when she was noted to have diffuse wheezing and productive cough. Chest x-ray was unremarkable. She was placed on doxycycline. Unfortunately, she reports that she has had increasing fatigue. She had dyspnea on exertion with therapy starting on Friday. She also had chills starting yesterday on the morning prior to admission. She was then reported to be lethargic and hypoxic with oxygen saturations dropping down in the mid 80s, requiring breathing treatments. Given multiple comorbidities and developing lethargy and hypoxemia, she was brought to [facility] Emergency Room for evaluation. Chest x-ray revealed a large left hiatal hernia; however, CT angiogram to rule out PE revealed left lower lobe infiltrate. She was admitted with working diagnosis of sepsis and pneumonia. 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 ALLERGIES: No known drug allergies. MEDICATIONS: DuoNeb nebulized treatments q.i.d., atorvastatin 40 mg at bedtime, Colace 200 mg daily, Effexor 75 mg b.i.d., Xarelto 20 mg daily, ferrous sulfate 325 mg b.i.d., Lasix 20 mg b.i.d., Aldactone 25 mg daily, gabapentin 300 mg t.i.d., Levemir 40 mg at bedtime with NovoLog 6 units t.i.d., losartan 100 mg daily, Toprol-XL 25 mg daily, oxycodone 5 mg q. 6 hours p.r.n., MiraLax 17 grams in 8 ounce water daily, prednisone 5 mg daily, vitamin D3 2000 units daily. FAMILY HISTORY: Noncontributory. SOCIAL HISTORY: The patient resides at [facility]. [address] [address] HISTORY AND PHYSICAL Name: VALERIA LARIOS Room #: 356-P [facility] IN [facility].#: [id number] Admission: 06/25/17 Attend Phys: Ugo King MD Discharge: Date of : 44 Report #: [id number] She does not use tobacco or alcohol. REVIEW OF SYSTEMS: GENERAL: She is able to feed herself, but requires assistance for transfer and all other activities of daily living. She is continent of bowel and bladder. She has chronic dependent edema. Otherwise, as per history of present illness. PHYSICAL EXAMINATION: GENERAL: The patient is a pleasant, cooperative, elderly -Croatian female lying in bed in no apparent distress. VITAL SIGNS: She has been afebrile with admission heart rate of 104, pulse of ____, blood pressure 115/47. HEENT: Head is normocephalic, atraumatic. Pupils are equal and reactive. Extraocular muscles are intact. Oropharynx is moist. NECK: Supple. Trachea is midline. LUNGS: Clear to auscultation bilaterally. CARDIOVASCULAR: Regular rate and rhythm. ABDOMEN: Soft, nontender, nondistended with normoactive bowel sounds. SKIN: Warm and dry. Turgor is adequate. She has a dressing over both feet. NEUROLOGIC: She is awake, alert, oriented x 3. Cranial nerves 2-12 within normal limits without focal neurologic deficit or lateralizing signs. EXTREMITIES: She has mild lower extremity edema. LABORATORY DATA: Abnormals include hemoglobin 9.5, hematocrit 29.6. BMP is unremarkable. BNP is 461. Urinalysis is unremarkable. Arterial blood gas revealed pO2 of 51 with oxygen saturation of 85%. Chest x-ray shows elevated left hemidiaphragm and bibasilar atelectasis, left greater than right. CT angiogram revealed no evidence of pulmonary embolism; however, there is prominent left lower lobe pneumonia. ASSESSMENT: 1. Sepsis with tachycardia and hypoxemia in the setting of pneumonia. 2. Pneumonia. 3. Diabetes mellitus type 2 with neuropathy. 4. Hypertension, benign. 5. Vitamin D deficiency. 6. Systemic lupus erythematosus, requiring chronic prednisone therapy. 7. Hyperlipidemia. 8. Deep vein thrombosis of left tibial vein, requiring chronic anticoagulation with Xarelto. 9. Chronic dependent edema. 10. Bilateral foot drop. PLAN: Admission. Continue IV vancomycin and IV Zosyn. We will increase prednisone to stress dose given her recent hospital stay. We will decrease her insulin since she will be on diabetic diet. Continue to monitor her [facility] [address] [place] [address] HISTORY AND PHYSICAL Name: VALERIA LARIOS Room #: 356-P ADM IN M.R.#: [id number] Admission: 06/25/17 Attend Phys: Ugo King MD Discharge: Date of : 44 Report #: [id number] cardiopulmonary status. We will continue Xarelto for management of DVT as well as for DVT prophylaxis. <ELECTRONICALLY SIGNED> By: Ugo King MD 06/26/17 1923 [id number] 1319 Ugo King MD /nt
--- NOTE | ~2017-06-24 | HC ---
[facility] [place] [address] CONSULTATION Name: VALERIA LARIOS Room #: 356-P ADM IN .R.#: [id number] Admission: 06/25/17 Attend Phys: Ugo King MD Discharge: Date of : 44 Report #: [id number] THIS REPORT FOR: //name// CC: Ugo King This heavy 72-year-old female with diabetes and other general medical problems and chronic dysvascular lower extremity problems, underwent bilateral great toe amputation about 3 weeks ago. Wound care has been satisfactory and the wound seemed to be healing nicely. She is back in the hospital for a new pneumonia problem. I have inspected the foot wounds and both the right and left seemed to be healing up satisfactorily. There is no drainage, no redness, and no warmth. I do not see evidence of any ongoing infection. She does have some blistering at both heels, which are well protected. Her surgery was about 20 days ago and I think we could go ahead with suture removal at this point. I would otherwise continue with topical measures for protection. I think she can transfer with weightbearing as tolerated if she is able, although I think she has been a nonambulator for some time. I will defer her other areas of skin and wound problems to the wound care team. <ELECTRONICALLY SIGNED> By: Avery Saeed MD 06/27/17 1626 1226 1556 Avery Saeed MD /vipin
--- NOTE | ~2017-06-24 | HC ---
[facility] [place] [address] CONSULTATION Name: VALERIA LARIOS Room #: 356-P ADM IN ..#: [id number] Admission: 06/25/17 Attend Phys: Ugo King MD Discharge: Date of : 44 Report #: [id number] THIS REPORT FOR: //name// CC: Ugo King DATE OF SERVICE: 06/25/2017 CHIEF COMPLAINT: Surgical incisions to both feet and other ulcerations. HISTORY OF PRESENT ILLNESS: This is a 72-year-old female patient with whom I am familiar from previous hospitalizations who underwent amputation of both great toes due to the ulceration underlying osteomyelitis. She is also noted to have a blister of right heel and ulceration on her sacral region. I have been asked to see her with regard to ongoing wound care. She was originally admitted to the hospital for shortness of breath and hypoxia and appears that she has a left lower lobe pneumonia. She appears to be in minimal distress at this time and has no specific complaints. Denies pain in her feet. MEDICATIONS: Include , losartan, pravastatin, venlafaxine, polyethylene glycol, ferrous sulfate, metoprolol, insulin, doxycycline, furosemide, acidophilus, spironolactone, calcium carbonate with vitamin D3, alendronate, insulin, Xarelto. ALLERGIES: None. SOCIAL HISTORY: Negative for alcohol or tobacco use. FAMILY HISTORY: Noncontributory. REVIEW OF SYSTEMS: CONSTITUTIONAL: Denies fever, chills, or weight loss. NEUROLOGICAL: The patient denies focal weakness. EYES: The patient denies visual changes or drainage. ENT: The patient denies earache, nasal drainage or sore throat. RESPIRATORY: The patient does complain of cough and some mild shortness of breath. CARDIOVASCULAR: The patient denies chest pain, palpitations, diaphoresis. GASTROINTESTINAL: The patient denies nausea, abdominal pain. ORTHOPEDIC: The patient is aware of the ulcerations and the surgical wounds on her extremities. Other systems in a 12-point review of systems are negative. PHYSICAL EXAMINATION: VITAL SIGNS: At this time include pulse 101, respiratory rate 18, blood pressure 135/57, temperature 98.9. GENERAL: This is a chronically ill-appearing female [place] [address] CONSULTATION Name: VALERIA LARIOS Tiny Room #: 356-P [facility] IN [facility]#: [id number] Admission: 06/25/17 Attend Phys: Ugo King MD Discharge: Date of : 44 Report #: [id number] distress. HEENT: Normocephalic. Nose and throat clear. NECK: Supple. LUNGS: Clear. ABDOMEN: Soft. EXTREMITIES: There is a small blister on the left abdominal wall that was present on her previous admission. It appears to be epithelializing and not entirely closed. She has a stage 3 sacral pressure ulceration that is clean, granulating with no exposed deep structures. She has what appears to be an old blister of her right heel on her lower extremities. She has palpable distal pulses. The heel is mostly epithelialized with a little bit of crusting present. She has surgical incision lines involving both feet following great toe amputations bilaterally. They appear to be healing well with no evidence of infection. Sutures remain in place. CLINICAL IMPRESSION: 1. Surgical incision lines both feet, doing well, following great toe amputations approximately 2 weeks ago. 2. Pressure ulceration to the right heel with previously unstageable, now is resolving. 3. A blister, left abdominal wall. 4. Stage 3 sacral pressure ulceration. RECOMMENDATIONS: At this point in time, we will recommend dry gauze to the amputation sites bilaterally. We will recommend bordered foam to the right heel, Prevalon boots while in bed. Recommend an Optifoam to the blister of the abdominal wall and some moisture barrier cream to the sacral region as she is having frequent stools and I think dressings would become soiled easily. I appreciate being asked to see her in consultation. <ELECTRONICALLY SIGNED> By: Bowen Lopez MD 06/26/17 1849 50 0 Bowen Lopez MD /nt
--- NOTE | ~2017-06-24 | EKG ---
[address] [address] ELECTROCARDIOGRAM REPORT Name: VALERIA LARIOS Room #: 353-P ADM IN M.R.#: [id number] Admission: 06/25/17 Attend Phys: Ugo King MD Discharge: Date of : 44 Report #: [id number] THIS REPORT FOR: //name// [facility] ED Test Date: 2017-06-24 Test Time: 22:46:39 Pat Name: VALERIA LARIOS Department: Room: [facility] Gender: F Solution Developer: Perfecto DAVIS : 1945 Requested By: Hung Pandey Order Number: [id number] MD: Felix Marques Measurements Intervals Stephan Rate: 107 P: 38 PA: 145 QRS: 10 QRSD: 81 T: 51 QT: 322 QTc: 430 Interpretive Statements Sinus tachycardia Otherwise normal tracing Compared to ECG 09/26/2016 15:09:44 No significant change was found Electronically Signed On 06-25-2017 8:04:11 CDT by Felix Marques [email or web address] <ELECTRONICALLY SIGNED> By: Felix Marques MD, [facility] 06/25/17 0804 2246 [id number] Felix Marques MD, [facility] /EPI
[~2017-06-24 22:29] MED LIST changes: +OXYCODONE HCL 55 MG PO; +VANCO 750750 MG/250 IV; +XARELTO20 MG PO
[2017-06-24 22:30] VITALS: BP 115/47
[2017-06-24 22:57] LABS: ABSOLUTE NEUTROPHILS 5.5 thou/uL (1.4-8.2); BASOPHILS 1.7 % (0.0-2.0); HEMATOCRIT 29.6 % (37.0-47.0); HEMOGLOBIN 9.5 gm/dL (12.0-15.0); LYMPHOCYTES 23.2 % (24.0-44.0); MCH 26.3 pg (26.0-34.0); MCHC 32.1 g/dL (28.0-37.0); MCV 82.2 fL (80.0-100.0); MONOCYTES 7.4 % (1.0-8.0); PLATELET COUNT 312 thou/uL (150-400); POLYS 61.7 % (36.0-66.0); RBC 3.61 mil/uL (4.20-5.00); RDW 15.7 % (10.5-14.5)
[2017-06-24] MEDS ORDERED: NOVOLOG100 UNIT/1 SUBQ (23:00)
[2017-06-24] MEDS ORDERED: DOXYCYCLINE 10100 MG PO (23:01)
[2017-06-24] MEDS ORDERED: MUCINEX600 MG PO (23:01)
[2017-06-24] MEDS ORDERED: LASIX 40 MG TAB40 M2 PO (23:01)
[2017-06-24 23:03] LABS: MANUAL DIFF NO
[2017-06-24 23:05] LABS: ABG SAMPLE TYPE ARTERIAL; BE(vivo) -0.2 mmol/L (-2 to +3); HCO3 24.7 mmol/L (22.0-26.0); LACTATE 2.06 mmol/L (0.5-2.0); O2(CT) 13.3 mL/dL (15.0-23.0); O2Hb 85.7 % (92.0-98.0); PCO2 41.1 mmHg (35.0-45.0); STICK SITE R.BRACHIAL; pH 7.396 (7.360-7.450); sO2 86.3 % (92.0-98.0); tCO2 25.9 mmol/L (24.0-30.0)
[2017-06-24 23:06] LABS: PO2 51.3 mmHg (80.0-100.0)
[2017-06-24 23:07] LABS: CALCIUM 8.8 mg/dL (8.5-10.1); CREATININE 1.2 mg/dL (0.6-1.0); POTASSIUM 4.2 mmol/L (3.5-5.1)
[2017-06-25] VITALS (7 sets, daily range): BP systolic 125–139; BP diastolic 43–59
[2017-06-25 00:17] LABS: URINE BILIRUBIN NEGATIVE (Negative); URINE BLOOD NEGATIVE (Negative); URINE COLOR YELLOW; URINE GLUCOSE-RANDOM* TRACE (Negative); URINE KETONES NEGATIVE (Negative); URINE LEUKOCYTES-REFLEX NEGATIVE (Negative); URINE PROTEIN (DIPSTICK) NEGATIVE (Negative); URINE SPECIFIC GRAVITY 1.015 (1.003-1.035); URINE UROBILINOGEN 0.2 E.U./dl (0.2-1.0)
[2017-06-25] MEDS ORDERED: BACID CAPLET1 EACH PO (01:11)
[2017-06-25] MEDS ORDERED: ALDACTONE25 MG PO (01:12)
[2017-06-25] MEDS ORDERED: FOSAMAX 70 MG T70 MG PO (01:12)
[2017-06-25] MEDS ORDERED: CALCIUM 500 +1 EAC5 PO (01:12)
[2017-06-25] MEDS ORDERED: LANTUS SUBQ (01:13)
[2017-06-25] MEDS ORDERED: PROTEIN POWDER480 GM PO (01:14)
[2017-06-25] MEDS ORDERED: XARELTO20 MG PO (01:15)
[2017-06-26] VITALS: BP 119/59
[2017-06-26 04:00] VITALS: BP 137/63
[2017-06-26 07:35] VITALS: BP 123/41
[2017-06-26 12:50] VITALS: BP 119/57
[2017-06-26 15:49] VITALS: BP 121/75
[2017-06-26 15:58] LABS: HEMOGLOBIN 9.1 gm/dL (12.0-15.0); MCHC 31.4 g/dL (28.0-37.0); MCV 82.7 fL (80.0-100.0); RBC 3.51 mil/uL (4.20-5.00); RDW 15.8 % (10.5-14.5); WBC 11.2 thou/uL (4.0-11.0)
[2017-06-26 16:09] LABS: CALCIUM 8.6 mg/dL (8.5-10.1); CREATININE 1.5 mg/dL (0.6-1.0); POTASSIUM 4.7 mmol/L (3.5-5.1)
[2017-06-26 19:33] VITALS: BP 127/50
[2017-06-27 03:58] VITALS: BP 122/54
[2017-06-27 08:33] VITALS: BP 122/49
[2017-06-27 15:58] VITALS: BP 144/72
[2017-06-27 16:57] VITALS: BP 120/50
[2017-06-27 20:00] VITALS: BP 135/51
[2017-06-28 04:00] VITALS: BP 136/49
[2017-06-28 07:26] LABS: HEMATOCRIT 27.3 % (37.0-47.0); HEMOGLOBIN 8.7 gm/dL (12.0-15.0); MCH 25.9 pg (26.0-34.0); MCHC 31.8 g/dL (28.0-37.0); MCV 81.4 fL (80.0-100.0); RBC 3.35 mil/uL (4.20-5.00); RDW 15.8 % (10.5-14.5); WBC 9.4 thou/uL (4.0-11.0)
[2017-06-28 07:36] LABS: CALCIUM 8.9 mg/dL (8.5-10.1); CREATININE 1.2 mg/dL (0.6-1.0); POTASSIUM 3.6 mmol/L (3.5-5.1)
[2017-06-28 07:55] VITALS: BP 135/56
[2017-06-28 11:23] VITALS: BP 135/56
[2017-06-28 15:53] VITALS: BP 149/68
[2017-06-28 19:02] VITALS: BP 146/63
[2017-06-29 03:48] VITALS: BP 119/52
[2017-06-29 04:41] LABS: HEMOGLOBIN 8.6 gm/dL (12.0-15.0); OBSERVED RETIC COUNT 2.94 % (0.6-2.6)
[2017-06-29 04:57] LABS: % SATURATION 21 % (20-39); ALBUMIN 2.3 g/dL (3.4-5.0); ALKALINE PHOSPHATASE 28 U/L (46-116); ANION GAP 11 mmol/L (7-16); BUN 15 mg/dL (7-18); CALCIUM 9.1 mg/dL (8.5-10.1); CHLORIDE 105 mmol/L (98-107); CO2 25 mmol/L (21-32); CREATININE 1.4 mg/dL (0.6-1.0); DIRECT BILIRUBIN < 0.1 mg/dL (<0.1-0.3); GLUCOSE 154 mg/dL (74-106); IRON 42 ug/dL (50-170); POTASSIUM 3.5 mmol/L (3.5-5.1); SGOT 10 U/L (15-37); SGPT 9 U/L (30-65); SODIUM 141 mmol/L (136-145); TIBC 201 ug/dL (250-450); TOTAL BILIRUBIN 0.3 mg/dL (<0.1-1.0); TOTAL PROTEIN 6.5 g/dL (6.4-8.2); UIBC 159 ug/dL
[2017-06-29 05:28] LABS: FOLIC ACID 11.3 ng/mL (8.6-58.9)
[2017-06-29 09:23] VITALS: BP 130/47
[2017-06-29 14:13] VITALS: BP 142/50
[2017-06-29 17:25] VITALS: BP 134/55
[2017-06-29 20:00] VITALS: BP 134/54
[2017-06-30 04:00] VITALS: BP 129/61
[2017-06-30 08:00] VITALS: BP 129/58
[2017-06-30] MEDS ORDERED: ZOSYN 3.373.375 GM/1 IV (09:40)
[2017-06-30] MEDS ORDERED: VANCOMYCIN500 MG/100 IV (09:42)
[2017-06-30] MEDS ORDERED: OXYCODONE HCL 55 MG PO (09:43)
[2017-06-30] MEDS ORDERED: LASIX 40 MG TAB40 M2 PO (09:45)
[2017-06-30 12:00] VITALS: BP 129/55
[2017-06-30 16:00] VITALS: BP 136/69
== END 2017-06-30 16:54 | DRG 871 ==
LOC: ER 22:29 → 3W 06-25 01:34 → EROBS 06-25 01:34 → 3W 06-25 02:00
PROVIDERS: Emergency Medicine; Internal Medicine
PROC: 02HV33Z Insertion of Infusion Device into Superior Vena Cava, Percutaneous Approach (ICD-10-PCS; principal; 2017-06-26)
DX: A41.9 Sepsis, unspecified organism (principal); L89.153 Pressure ulcer of sacral region, stage 3; J18.9 Pneumonia, unspecified organism; J96.91 Respiratory failure, unspecified with hypoxia; I82.542 Chronic embolism and thrombosis of left tibial vein; M19.90 Unspecified osteoarthritis, unspecified site; I10 Essential (primary) hypertension; F41.8 Other specified anxiety disorders; E78.5 Hyperlipidemia, unspecified; K21.9 Gastro-esophageal reflux disease without esophagitis; M81.0 Age-related osteoporosis without current pathological fracture; E11.40 Type 2 diabetes mellitus with diabetic neuropathy, unspecified; E55.9 Vitamin D deficiency, unspecified; M32.9 Systemic lupus erythematosus, unspecified; M21.372 Foot drop, left foot; M21.371 Foot drop, right foot; D50.9 Iron deficiency anemia, unspecified; L89.610 Pressure ulcer of right heel, unstageable; S30.821A Blister (nonthermal) of abdominal wall, initial encounter; X58.XXXA Exposure to other specified factors, initial encounter; Z90.49 Acquired absence of other specified parts of digestive tract; Z90.710 Acquired absence of both cervix and uterus; Z79.01 Long term (current) use of anticoagulants; Z79.4 Long term (current) use of insulin; Z79.899 Other long term (current) drug therapy; Y93.89 Activity, other specified; Y92.89 Other specified places as the place of occurrence of the external cause; Y99.8 Other external cause status; Z89.412 Acquired absence of left great toe; Z89.411 Acquired absence of right great toe; Z23 Encounter for immunization
CPT/HCPCS: 10779; 27000

== ENCOUNTER → 2017-09-23 | Outpatient (CLI) | payer OTHER ==
[~2017-09-23] MED LIST changes: +ALDACTONE25 MG PO; +BACID CAPLET1 EACH PO; +CALCIUM 500 +1 EAC5 PO; +CEFEPIME-D1 GM/50 ML IV; +CENTRUM SILVER1 EAC4 PO; +DOXYCYCLINE 10100 MG PO; +LANTUS SUBQ; +LIQUITEARS15 ML OPHTHALMIC; +LOPRESSOR25 PO; +MILK OF MA400 MG/5 M PO; +MUCINEX600 MG PO; +NOVOLOG100 UNIT/1 SUBQ; +PREDNISONE 10 M10 MG PO; +PROTEIN POWDER480 GM PO; +SENNA-DOCUSATE1 EAC1 PO; +VANCOMYCIN HCL10 GM PO; +VANCOMYCIN500 MG/100 IV; +ZOSYN 3.373.375 GM/1 IV
== END ==
LOC: HYPER 06:57
DX: E11.621 Type 2 diabetes mellitus with foot ulcer (principal); I87.2 Venous insufficiency (chronic) (peripheral); L97.421 Non-pressure chronic ulcer of left heel and midfoot limited to breakdown of skin; L97.511 Non-pressure chronic ulcer of other part of right foot limited to breakdown of skin; L89.622 Pressure ulcer of left heel, stage 2; E11.36 Type 2 diabetes mellitus with diabetic cataract; M19.90 Unspecified osteoarthritis, unspecified site; M81.0 Age-related osteoporosis without current pathological fracture; F32.9 Major depressive disorder, single episode, unspecified; Z79.4 Long term (current) use of insulin; Z86.718 Personal history of other venous thrombosis and embolism; Z72.89 Other problems related to lifestyle

== ENCOUNTER → 2017-10-14 | Outpatient (CLI) | payer OTHER | LOC: HYPER 06:45 | DX: E11.621 Type 2 diabetes mellitus with foot ulcer (principal); L97.511 Non-pressure chronic ulcer of other part of right foot limited to breakdown of skin; L97.521 Non-pressure chronic ulcer of other part of left foot limited to breakdown of skin; L89.620 Pressure ulcer of left heel, unstageable; L89.510 Pressure ulcer of right ankle, unstageable; E11.36 Type 2 diabetes mellitus with diabetic cataract; I10 Essential (primary) hypertension; M19.90 Unspecified osteoarthritis, unspecified site; F32.9 Major depressive disorder, single episode, unspecified; M81.0 Age-related osteoporosis without current pathological fracture; Z79.4 Long term (current) use of insulin; Z86.718 Personal history of other venous thrombosis and embolism; Z72.89 Other problems related to lifestyle ==

== ENCOUNTER → 2017-10-28 | Outpatient (CLI) | payer OTHER | LOC: HYPER 06:53 | DX: E11.621 Type 2 diabetes mellitus with foot ulcer (principal); I87.2 Venous insufficiency (chronic) (peripheral); L89.620 Pressure ulcer of left heel, unstageable; L97.511 Non-pressure chronic ulcer of other part of right foot limited to breakdown of skin; L97.421 Non-pressure chronic ulcer of left heel and midfoot limited to breakdown of skin; E11.36 Type 2 diabetes mellitus with diabetic cataract; E11.319 Type 2 diabetes mellitus with unspecified diabetic retinopathy without macular edema; H40.9 Unspecified glaucoma; I10 Essential (primary) hypertension; M19.90 Unspecified osteoarthritis, unspecified site; M81.0 Age-related osteoporosis without current pathological fracture; B35.1 Tinea unguium; F32.9 Major depressive disorder, single episode, unspecified; Z79.01 Long term (current) use of anticoagulants; Z79.4 Long term (current) use of insulin; Z86.718 Personal history of other venous thrombosis and embolism; Z72.89 Other problems related to lifestyle ==

== ENCOUNTER → 2017-11-18 | Outpatient (CLI) | payer OTHER | LOC: HYPER 07:04 | DX: E11.621 Type 2 diabetes mellitus with foot ulcer (principal); L97.511 Non-pressure chronic ulcer of other part of right foot limited to breakdown of skin; E11.622 Type 2 diabetes mellitus with other skin ulcer; L89.510 Pressure ulcer of right ankle, unstageable; L97.311 Non-pressure chronic ulcer of right ankle limited to breakdown of skin; E11.36 Type 2 diabetes mellitus with diabetic cataract; E11.39 Type 2 diabetes mellitus with other diabetic ophthalmic complication; H40.9 Unspecified glaucoma; I10 Essential (primary) hypertension; M81.0 Age-related osteoporosis without current pathological fracture; M19.90 Unspecified osteoarthritis, unspecified site; F32.9 Major depressive disorder, single episode, unspecified; Z86.718 Personal history of other venous thrombosis and embolism; Z72.89 Other problems related to lifestyle; Z79.4 Long term (current) use of insulin ==

== ENCOUNTER → 2017-12-16 | Outpatient (CLI) | payer OTHER | LOC: HYPER 12-09 06:56 | DX: E11.621 Type 2 diabetes mellitus with foot ulcer (principal); L97.511 Non-pressure chronic ulcer of other part of right foot limited to breakdown of skin; E11.622 Type 2 diabetes mellitus with other skin ulcer; L97.311 Non-pressure chronic ulcer of right ankle limited to breakdown of skin; L89.510 Pressure ulcer of right ankle, unstageable; Z79.4 Long term (current) use of insulin; E11.36 Type 2 diabetes mellitus with diabetic cataract; Z86.718 Personal history of other venous thrombosis and embolism; I10 Essential (primary) hypertension; M19.90 Unspecified osteoarthritis, unspecified site; F32.9 Major depressive disorder, single episode, unspecified ==

== ENCOUNTER 2019-09-01 05:42 | Inpatient (IN) | payer OTHER ==
[~2019-09-01] VITALS: Ht 172.7 cm; Wt 112.3 kg
[2019-09-01] VITALS (7 sets, daily range): BP systolic 109–143; BP diastolic 39–56
[2019-09-01 06:06] LABS: ABSOLUTE NEUTROPHILS 6.6 thou/uL (1.4-8.2); BASOPHILS 0.6 % (0.0-2.0); EOSINOPHILS 4.3 % (0.0-3.0); HEMATOCRIT 43.2 % (37.0-47.0); HEMOGLOBIN 13.7 gm/dL (12.0-15.0); LYMPHOCYTES 25.3 % (24.0-44.0); MCH 27.3 pg (26.0-34.0); MCHC 31.7 g/dL (28.0-37.0); MCV 86.3 fL (80.0-100.0); MONOCYTES 7.4 % (1.0-8.0); PLATELET COUNT 244 thou/uL (150-400); POLYS 62.4 % (36.0-66.0); RBC 5.01 mil/uL (4.20-5.00); RDW 14.8 % (10.5-14.5); WBC 10.5 thou/uL (4.0-11.0)
[2019-09-01 06:08] LABS: BE(vivo) 4.1 mmol/L (-2 to +3); HCO3 29.3 mmol/L (22.0-26.0); PCO2 46.1 mmHg (35.0-45.0); pH 7.421 (7.360-7.450); sO2 78.5 % (92.0-98.0)
[2019-09-01 06:09] LABS: PO2 42.2 mmHg (80.0-100.0)
[2019-09-01 06:18] LABS: ANION GAP 11 mmol/L (7-16); BUN 11 mg/dL (7-18); CALCIUM 9.2 mg/dL (8.5-10.1); CHLORIDE 100 mmol/L (98-107); CO2 30 mmol/L (21-32); CREATININE 1.8 mg/dL (0.6-1.0); GLUCOSE 233 mg/dL (74-106); POTASSIUM 3.4 mmol/L (3.5-5.1); SODIUM 141 mmol/L (136-145)
[2019-09-01 06:27] LABS: TROPONIN-I <0.06 ng/mL (<0.06)
[2019-09-01 06:31] LABS: DIRECT BILIRUBIN < 0.1 mg/dL (<0.1-0.2); SGOT 40 U/L (15-37); SGPT 27 U/L (30-65); TOTAL BILIRUBIN 0.8 mg/dL (<0.1-1.0); TOTAL PROTEIN 7.2 g/dL (6.4-8.2)
[2019-09-01 06:49] LABS: URINE BILIRUBIN NEGATIVE (Negative); URINE BLOOD NEGATIVE (Negative); URINE CLARITY CLEAR; URINE COLOR YELLOW; URINE GLUCOSE-RANDOM* NEGATIVE (Negative); URINE KETONES NEGATIVE (Negative); URINE LEUKOCYTES-REFLEX NEGATIVE (Negative); URINE NITRITE-REFLEX NEGATIVE (Negative); URINE PROTEIN (DIPSTICK) 1+ (Negative); URINE UROBILINOGEN 0.2 E.U./dl (0.2-1.0)
[2019-09-01 07:24] LABS: HCO3 27.7 mmol/L (22.0-26.0); PCO2 42.8 mmHg (35.0-45.0); PO2 90.8 mmHg (80.0-100.0); pH 7.429 (7.360-7.450); sO2 97.1 % (92.0-98.0)
[2019-09-01] MEDS ORDERED: ACTOS15 MG PO (07:35)
[2019-09-01] MEDS ORDERED: ASA81BEC PO (07:35)
[2019-09-01] MEDS ORDERED: EFFEXOR XR75 MG PO (07:38)
[2019-09-01] MEDS ORDERED: IPRAT-ALBUT 0.5-3 ML INH (07:38)
[2019-09-01] MEDS ORDERED: NEURONTIN600 MG PO (07:40)
[2019-09-01] MEDS ORDERED: NEURONTIN 300300 M1 PO (07:40)
[2019-09-01] MEDS ORDERED: LASIX 40 MG TAB40 MG PO (07:41)
[2019-09-01 08:47] LABS: BACTERIA-REFLEX 1-9 Few /HPF (None Seen); CASTS None Seen /LPF (None Seen); CRYSTALS None Seen /LPF (None Seen); SQUAMOUS 0-3 Few /LPF (0-3); URINE RBC None Seen /HPF (0-2); URINE WBC-REFLEX 0-5 Rare /HPF (0-5)
--- NOTE | 2019-09-01 08:55 | EKG ---
[address] [address] ELECTROCARDIOGRAM REPORT Name: VALERIA LARIOS Room #: 217-P ADM IN M.R.#: [id number] Admission: 09/01/19 Attend Phys: Ugo King MD Discharge: Date of : 44 Report #: [id number] THIS REPORT FOR: //name// [facility] ED Test Date: 2019-09-01 Test Time: 06:35:08 Pat Name: VALERIA SHAIKHAWAY Department: Room: [facility] Gender: F Editorial Project Manager: donaldo lipscomb rn : 1945 Requested By: Julio Mckeon Order Number: [id number] MD: Felix Marques Measurements Intervals [place] Rate: 139 P: 19 CA: 123 QRS: -10 QRSD: 82 T: 30 QT: 301 QTc: 458 Interpretive Statements Sinus tachycardia Compared to ECG 07/23/2017 18:42:43 No significant changes Electronically Signed On 09-01-2019 8:55:22 BANK RUNNER by Felix Marques [email or web address] <ELECTRONICALLY SIGNED> By: Felix Marques MD, [facility] 09/01/19 0855 0635 4 Felix Marques MD, [facility] /EPI
--- NOTE | 2019-09-01 10:39 | NUR ---
Patient admits from [facility]. She admits with AMS. Patient sleeping and currently not on oxygen at facility but wearing here in hospital. Brother at bedside who reports plan to return to [facility] once medically stable. Left message with DON at [facility]. Plan to update facility.
[2019-09-01] MEDS ORDERED: NOVOLOG100 UNIT/M SUBQ (15:43)
[2019-09-01] MEDS ORDERED: METOPROLOL TART25 MG PO (15:48)
[2019-09-01] MEDS ORDERED: CEPACOL SORE T1 EAC8 PO (15:57)
[2019-09-01] MEDS ORDERED: FOSAMAX 70 MG T70 MG PO (15:58)
[2019-09-01] MEDS ORDERED: GLUCAGON EMERGEN1 MG IM (15:59)
[2019-09-01] MEDS ORDERED: GLYCOLAX119 GM PO (16:00)
[2019-09-01] MEDS ORDERED: VYZULTA5 ML OPHTHALMIC (16:01)
[2019-09-01] MEDS ORDERED: LEVEMIR FL100 UNIT/2 SUBQ (16:04)
[2019-09-01] MEDS ORDERED: MILK OF MA400 MG/5 M PO (16:05)
[2019-09-01] MEDS ORDERED: OMEPRAZOLE 20 M20 M1 PO (16:06)
--- NOTE | 2019-09-01 20:13 | NUR ---
PT. ARRIVED AT FLOOR AROUND 0800; ALERT TO PERSON; DROWSY; AROUSABLE WHEN CALLING NAME; C/O PAIN OVER LEGS; NO SCHEDULED PRN PAIN MEDICATION; IV FLUIDS FINISHED; LABS COLLECTED AND SEND IT; BROTHER AT THE BED SIDE; UPDATES GIVEN & FORMS SIGNED; DR. BLAIRE KO ON PT. AROUND 1100; ORDERS RECEIVED; ADMISSION PERFORMED; HOME MEDS UPDATED; THROUGH THE DAY PT. RESTING WITH EYES CLOSED; AROUSABLE WHEN CALLED NAME; NO URINE OUTPUT AFTER ADMISSION; BLADDER SCANNER SHOWED 240; CREATININE 1.8; MONITORING; PASSED ON REPORT; ST ON THE MONITOR; ID CONSULTED; CALLED BACK GOTTEN FROM DR. YIP; REPORT GIVEN; NO NEW ORDERS; ASSESSMENT CHARGED; FOLLOWING POC; PASSED ON REPORT;
[2019-09-02 04:37] VITALS: BP 119/51
--- NOTE | 2019-09-02 05:47 | NUR ---
ASSUMED PT CARE AROUND 1900. PT WAS LETHARGIC AND ONLY AO X SELF. PT SLEPT FOR MAJORITY OF SHIFT. ASSESSMENTS CHARTED. PT WAS MORE COHERENT DURING AM ASSESSMENT. PT WILL CONTINUE TO BE MONITORED PER POC.
[2019-09-02 08:00] VITALS: BP 129/43
[2019-09-02 12:00] VITALS: BP 120/50
--- NOTE | 2019-09-02 16:26 | NUR ---
ASSUMED CARE 0700. ALERT TO PERSON AND PLACE, FORGETFUL, FROM LTC, C/O FINGER PAIN, Q2HR TURN TOLERATED. EXTERNAL FEMALE CATHETER INPLACE. NO BM AT THIS TIME. DIET ADVANCED TO REGULAR. ON LOW SLIDING SCALE FOR INSULIN. NON AMBULTING WITH MAX ASSISTANCE/SLIDE DEVICE. PERSONAL ITEMS IN REACH. CALLS FOR ASSISTANCE. FALL PRECAUTIONS IN PLACE.
[2019-09-02 17:09] VITALS: BP 158/82
[2019-09-02 19:42] VITALS: BP 149/63
[2019-09-03 04:31] VITALS: BP 127/53
[2019-09-03 04:54] LABS: CALCIUM 7.7 mg/dL (8.5-10.1); CREATININE 1.7 mg/dL (0.6-1.0); POTASSIUM 4.2 mmol/L (3.5-5.1)
[2019-09-03 05:42] LABS: HEMATOCRIT 34.6 % (37.0-47.0); MCH 26.9 pg (26.0-34.0); MCHC 31.2 g/dL (28.0-37.0); MCV 86.1 fL (80.0-100.0); RBC 4.02 mil/uL (4.20-5.00); RDW 14.4 % (10.5-14.5); WBC 11.2 thou/uL (4.0-11.0)
[2019-09-03 05:46] LABS: HEMOGLOBIN 10.8 gm/dL (12.0-15.0)
[2019-09-03 07:30] VITALS: BP 141/51
--- NOTE | 2019-09-03 11:14 | NUR ---
ASSUMED CARE 0700, NOTED RIGHT HAND IV INFILTRATION. NIGHT NURSE REMOVED IV. NOTIFIED DR RUDD OF INFILTRATIONS AND BLISTERS APPEARING. NORIFIED CARROTING MACHINE OPERATOR, VASCULAR ACCESS NURSE BLISTERS RELATED TO TEGADERM. ICE APPLIED AND PICTURE TAKEN. NEW ORDER FOR PICC LINE HOWEVER VASCULAR TEAM UNABLE TO PLACE PICC. MID LINE IV PLACE.
[2019-09-03 11:30] VITALS: BP 143/70
--- NOTE | 2019-09-03 12:03 | NUR ---
NOTIFIED TO PLACE A PICC FOR A PATIENT NEEDING ACCESS FOR IV ANTIBIOTICS, ORDER AND CONSENT NOTED. CCU RN OBTAINED CONSENT VIA PHONE FROM [facility]. PATIENT IS ALERT TO SELF ONLY. PROCEDURE WELL BENIFITS AND RISKS EXPLAINE. PATIENT NOTED TO HAVE A HIGH LEVEL OF ANXIETY ABOUT THE PROCEDURE. THE RIGHT BASILIC WAS WIDLEY PATENT. A PICC WAS ATTEMPTED AND UNABLE TO PASS INTO SVC, THE RIGHT BRACHIAL WAS ALSO CANNULATED AND AGAIN UNABLE TO PASS INTO THE SVC. AFTER MULTIPLE ATTEMPTS THE PICC WAS TRIMMED TO A MIDLINE CATHETER OF 15CM AND PLACED FOR ACCESS. IF PATIENT DOES NEED PICC SHE WILL NEED TO HAVE PLACED IN INTERVENTIONAL RADIOLOGY. MIDLINE RELEASED FOR USE. CCU NUSE AWARE THE MIDLINE CANNOT HAVE NONCOMPATABLE MEDS INFUSING AT THE SAME TIME. NOTE ALSO PLACED ON THE MIDLINE DRESSING ITSELF
--- NOTE | 2019-09-03 16:00 | NUR ---
FAXED H&P TO [facility]. SPOKE TO ADMISSION LIASON TO CONFIRM THEY RECEIVED. DP TO FOLLOW.
[2019-09-03 16:30] VITALS: BP 139/83
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
[2019-09-03 20:07] VITALS: BP 153/62
[2019-09-04 03:23] VITALS: BP 129/58
--- NOTE | 2019-09-04 05:25 | NUR ---
ASSUMED PT CARE AT 1900. PT IS LAYING IN BED, RESTING COMFORTBLY. PT IS ALERT BUT CONFUSED. PT IS AWAKE THROUGHOUT THE NIGHT. ASSESSMENT COMPLETED AND DOCUMENTED. FALL PRECAUTION IN PLACE. SCHEUDULED MEDS ADMINISTERED TO PT. CONTINUE TO MONITOR, DENIES ANY FURTHER NEEDS AT THIS TIME.
[2019-09-04 07:30] VITALS: BP 138/61
[2019-09-04 17:00] VITALS: BP 121/73
--- NOTE | 2019-09-04 18:20 | NUR ---
PATIENT IS STILL VERY CONFUSED AND WANTING TO GET OUT OF BED THIS EVENING. PATIENT HAD URINARY RETENTION TODAY AND HAD TO HAVE BEASLEY PLACED. SHE HAD MINIMAL APETITE. PATIENT HAD A LOT OF DIFFICULTY SWALLING PILLS OR FOOD. PILLS DEFINITELY NEED TO BE CRUSHED. SHE IS CURRENTLY IN BED ASKING TO GET OUT. CONTINUE TO BE REDIRECTED.
[2019-09-04 20:00] VITALS: BP 151/63
[2019-09-05 01:19] LABS: URINE BILIRUBIN 1+ (Negative); URINE BLOOD 3+ (Negative); URINE CLARITY CLOUDY; URINE COLOR RED; URINE GLUCOSE-RANDOM* NEGATIVE (Negative); URINE KETONES NEGATIVE (Negative); URINE PROTEIN (DIPSTICK) 2+ (Negative); URINE UROBILINOGEN 0.2 E.U./dl (0.2-1.0)
[2019-09-05 01:21] LABS: ICTOTEST (BILI CONFIRMATORY) Positive (Negative); URINE LEUKOCYTES-REFLEX 1+ (Negative); URINE NITRITE-REFLEX POSITIVE (Negative)
[2019-09-05 01:47] LABS: URINE RBC >20 Many /HPF (0-2)
[2019-09-05 01:48] LABS: BACTERIA-REFLEX 1-9 Few /HPF (None Seen); CASTS None Seen /LPF (None Seen); CRYSTALS None Seen /LPF (None Seen); MUCUS None Seen strn/LPF (None Seen); SQUAMOUS None Seen /LPF (0-3)
[2019-09-05 04:45] VITALS: BP 142/62
[2019-09-05 05:58] LABS: HEMATOCRIT 36.2 % (37.0-47.0); HEMOGLOBIN 11.6 gm/dL (12.0-15.0); MCH 27.1 pg (26.0-34.0); MCV 84.7 fL (80.0-100.0); RBC 4.28 mil/uL (4.20-5.00); RDW 14.6 % (10.5-14.5); WBC 8.5 thou/uL (4.0-11.0)
[2019-09-05 06:04] LABS: CALCIUM 9.1 mg/dL (8.5-10.1); CREATININE 1.3 mg/dL (0.6-1.0); POTASSIUM 3.3 mmol/L (3.5-5.1)
--- NOTE | 2019-09-05 06:31 | NUR ---
ASSUMED PT CARE AT 1900. PT ALERT AND ORIENTED TO SELF, VITAL SIGNS STABLE, ASSESSMENT CHARTED. NO COMPLAINTS OF PAIN, [id number]. BLOODY URINE NOTED, PHYSICIAN NOTIFIED, UA AND CULTURE SENT TO LAB. PT OTHERWISE RESTED WELL THROUGH THE NIGHT. PROGRESSING TOWARD PLAN OF CARE, WILL CONTINUE TO MONITOR.
[2019-09-05 08:19] VITALS: BP 147/59
[2019-09-05 12:35] VITALS: BP 158/72
[2019-09-05 17:28] VITALS: BP 147/66
--- NOTE | 2019-09-05 18:23 | NUR ---
VAT ROUNDING AND PT RT ARM APPEARED MORE EDEMETOUS THAN YESTERDAY, BLISTERS ON LT HAND. SCANNED UPPER ARM TO VISUALIZE THE VESSEL WITH THE TIP OF THE ML....WOULD NOT COMPRESS. DC'D CATHETER INTACT AND PLACED A PIV FOR ACCESS
--- NOTE | 2019-09-05 18:35 | NUR ---
RECEIVED PT'S CARE AROUND 0715; PT'S ON BED; ALERT TO PERSON; DURING ASSESSMENT NO C/O PAIN; AM MEDICATIONS GIVEN; PT. COUGHING AFTER HAVING MEDICATIONS & SOME EGGS; NO COMPLETE BREAKFAST GIVEN; PHYSICIAN PAGED; NO ANSWER BACK; NOTICED DURING ASSESSMENT RUE SWELLING; BLISTER OVER R. HAND; PER REPORT PT'S HAD BLISTER THE DAY BEFORE; EXTREMITY ELEVATED; DR. SERRANO ROUNDING DURING THE AFTERNOON; NOTIFIED ABOUT PT'S COUDH WITH FOOD; ORDERS ON PLACE; LATE ON THE AFTERNOON IV NURSE ROUNDING ON PT'S MIDLINE; IV NURSE ST. SWELLING INCREASE FROM 09/04/19; PHYSICIAN NOTIFIED; ORDERS RECEIVED; NOT HAM STRINGER AVAILABLE DURING THE EVENING; PHYSICIAN NOTIFIED; NO NEW ORDERS; ASSESSMENT CHARGED; FOLLOWING POC; WILL PASS ON REPORT; SR ON THE MONITOR;
[2019-09-05 19:52] VITALS: BP 144/59
[2019-09-05 23:06] LABS: ADENOVIRUS Negative (Negative); INFLUENZA A Negative (Negative); INFLUENZA B Negative (Negative); METAPNEUMOVIRUS Negative (Negative); PARAINFLUENZA 1 Negative (Negative); PARAINFLUENZA 2 Negative (Negative); PARAINFLUENZA 3 Negative (Negative); RHINOVIRUS Negative (Negative); RSV A Negative (Negative); RSV B Negative (Negative)
[2019-09-06 04:37] VITALS: BP 142/64
--- NOTE | 2019-09-06 04:50 | NUR ---
INCREASED COUGHING WHILE TAKING MEDICATIONS DESPITE BEING CRUSHED AND SERVED WITH PUDDING. ALSO, URINE OUTPUT EXTREMELY LOW, FOLE REMAINS IN PLACE. WILL PASS ON TO DAY SHIFT.
[2019-09-06 05:21] LABS: CALCIUM 8.9 mg/dL (8.5-10.1); CREATININE 1.3 mg/dL (0.6-1.0); MAGNESIUM 1.8 mg/dL (1.8-2.4); POTASSIUM 3.5 mmol/L (3.5-5.1)
[2019-09-06 07:35] VITALS: BP 207/119
[2019-09-06 08:00] VITALS: BP 117/56
--- NOTE | 2019-09-06 15:01 | NUR ---
FAXED CLINICAL UPDATE TO [facility] SPOKE WITH TIANNA IN ADM SHE RECEIVED UPDATE AND WILL HAVE HER BED OPEN FOR DC THIS WEEK. DP TO FOLLOW.
[2019-09-06 16:00] VITALS: BP 135/52; BP 145/70
[2019-09-06 20:17] VITALS: BP 165/67
--- NOTE | 2019-09-06 20:27 | NUR ---
RECEIVED PT'S CARE AROUN 0710; PT. ON BED; ALERT; PER REPORT; PT'S US PERFOMED LATE ON THE NIGHT; PHYSICIAN NOTIFED EARLY ON THE MORNING; NO NEW ORDERS; EMAR UPDATE; BEASLEY D/C PER ORDER; DURING ASSESSMENT PT. ALERT TO PERSON; NO C/O PAIN; AM MEDICATION GIVEN LATE; WAITING FOR ST ASSESSMENT; AM MEDICATIONS GIVEN CRUSHED ON PUREE; THROUGH THE DAY PT. TURNED FROM SIDE TO SIDE Q2H; INCONTINENT; THROUGH THE DAY PT. RESTLESS; CALLING FREQUENTLY; LATER ON THE AFTERNOON PT. ST. "PLEASE FORGIVE ME" "I FORGIVE YOU"; NOTICED DURING THE LAST DAYS NOT BM; BLADDER SCANNER PERFOMED; SHOWING 420 ML; PHYSICIAN NOTIFIED; ORDERS RECEIVED; BEASLEY INSERT; NO HR MONITOR; ASSESSMENT CHARGED; FOLLOWING POC; PASSED ON REPORT;
--- NOTE | 2019-09-07 04:27 | NUR ---
ASSUMED PT CARE AT 1900. PT IS ALERT BUT CONFUSED. NO SIGN OF DISTRESS NOTED IN PT. DENIES ANY NEED. ASSESSMENT COMPLETED AND DOCUMENTED. FALL PRECAUTION IN PLACE. SCHEDULED MEDS ADMINISTERED TO PT. NO FURTHER NEEDS REQUESTED AT THIS TIME.
[2019-09-07 04:46] VITALS: BP 164/73
[2019-09-07 08:00] VITALS: BP 135/56
[2019-09-07] MEDS ORDERED: XARELTO15 MG PO (09:54)
[2019-09-07] MEDS ORDERED: FLOMAX0.4 MG PO (09:55)
[2019-09-07] MEDS ORDERED: AUGMENTIN 500-1 EACH PO (09:55)
[2019-09-07] MEDS ORDERED: FERROUS SU220 MG/52 PO (09:56)
[2019-09-07] MEDS ORDERED: LOPRESSOR50 PO (09:57)
[2019-09-07] MEDS ORDERED: NEURONTIN 300M300 M2 PO (09:58)
--- NOTE | 2019-09-07 13:05 | NUR ---
PT DISCHARGING BACK TO [facility] FAXED DC ORDERS/SUMMARY TO FACILITY SPOKE WITH TIANNA IN ADM SHE RECEIVED DC ORDERS. TRANSPORT ARRANGED THROUGH [facility] FOR A [facility] VAN TRIP #[id number]. NOTIFIED PT'S BROTHER (CELSO) OF DC AND TIME OF TRANSPORT HE WILL MEET HER AT [facility]. UNIT NOTIFIED AND CHART COPY PER US. RN TO CALL REPORT TO [phone].
--- NOTE | 2019-09-07 16:53 | NUR ---
ASSUSMED CARE OF PT AT SHIFT CHANGE. ASSESSMENT CHARTED. MEDS GIVEN PER NOV. MEDS CRUSHED IN APPLESAUCE D/T POCKETING. NO C/O PAIN. PT ALERT TO SELF. BEASLEY IN PLACE D/T RETENTION. DISCHARGE ORDERS COMPLETE. PT TRANSPORTED TO [facility].
== END 2019-09-07 16:41 | DRG 871 ==
LOC: ER 05:42 → EROBS 07:13 → 2N 07:13
PROVIDERS: Emergency Medicine; Emergency Medicine Emergency Medical Services; Internal Medicine; Specialist; ADMIT Internal Medicine
PROC: 05H933Z Insertion of Infusion Device into Right Brachial Vein, Percutaneous Approach (ICD-10-PCS; principal; 2019-09-03)
DX: A41.9 Sepsis, unspecified organism (principal); G93.41 Metabolic encephalopathy; J69.0 Pneumonitis due to inhalation of food and vomit; I82.621 Acute embolism and thrombosis of deep veins of right upper extremity; R65.20 Severe sepsis without septic shock; F32.9 Major depressive disorder, single episode, unspecified; F41.9 Anxiety disorder, unspecified; E78.5 Hyperlipidemia, unspecified; K21.9 Gastro-esophageal reflux disease without esophagitis; E11.51 Type 2 diabetes mellitus with diabetic peripheral angiopathy without gangrene; E66.9 Obesity, unspecified; N31.9 Neuromuscular dysfunction of bladder, unspecified; E11.42 Type 2 diabetes mellitus with diabetic polyneuropathy; R13.13 Dysphagia, pharyngeal phase; E87.6 Hypokalemia; R33.9 Retention of urine, unspecified; E11.22 Type 2 diabetes mellitus with diabetic chronic kidney disease; N18.2 Chronic kidney disease, stage 2 (mild); I12.9 Hypertensive chronic kidney disease with stage 1 through stage 4 chronic kidney disease, or unspecified chronic kidney disease; M32.9 Systemic lupus erythematosus, unspecified; K59.00 Constipation, unspecified; M19.90 Unspecified osteoarthritis, unspecified site; M81.0 Age-related osteoporosis without current pathological fracture; Z89.412 Acquired absence of left great toe; Z89.411 Acquired absence of right great toe; Z79.899 Other long term (current) drug therapy; Z79.4 Long term (current) use of insulin; Z90.710 Acquired absence of both cervix and uterus; Z79.82 Long term (current) use of aspirin; Z79.2 Long term (current) use of antibiotics; Z68.37 Body mass index [BMI] 37.0-37.9, adult
CPT/HCPCS: 10081; 10797; 27000